=== PATIENT | female | born 1945 | race African-American/Black ===

== ENCOUNTER 2017-06-06 18:43 | Emergency (ER) | payer MEDICARE, MEDICAID ==
[~2017-06-06] VITALS: Ht 162.6 cm; Wt 80.7 kg
[2017-06-06] MEDS ORDERED: Norco 7.5mg/325mg tab ORAL ONE (19:15)
--- NOTE | 2017-06-06 20:24 | Emergency Room Report ---
History of Present Illness General Chief Complaint: Back Injury Source: Patient Present Illness HPI 72-year-old female presents to the emergency department complaining of 10 out of 10 in severity lower back and left hip pain status post mechanical fall 3 days ago. Patient states that she fell backwards and landed on her tailbone she denies hitting her head she denies loss of consciousness patient rates her pain as 10 on a 10 in severity and states it radiates across the low back and down the tailbone. Patient reports difficulty finding comfortable position she denies numbness and tingling in the extremities. Sensation is a history of lupus and high blood pressure . Denies numbness tingling or loss of sensation or gross motor movements of the extremities, incontinence of bowel or bladder. Denies CP, Palpitations, LOC, AMS, dizziness, Changes in Vision, Sensation, paresthesias, or a sudden severe headache. Allergies: Coded Allergies: IBUPROFEN (Verified Allergy, Unknown, 06/06/17) NAPROXEN (Verified Allergy, Unknown, 06/06/17) PENICILLINS (Verified Allergy, Unknown, 06/06/17) Patient History Past Medical History: see triage record, HTN, other - lupus Past Surgical History: none Pertinent Family History: none Last Menstrual Period: Post Now: No Reviewed Nursing Documentation: PMH: Agreed, PSxH: Agreed Nursing Documentation-PMH Hx Hypertension: Yes Review of Systems All Other Systems: negative except mentioned in HPI Physical Exam Vital Signs Date Time Temp Pulse Resp B/P (MAP) Pulse Ox O2 Delivery O2 Flow Rate FiO2 06/06/17 18:54 97.9 75 16 148/83 98 Room Air Sp02 EP Interpretation: reviewed, normal General Appearance: no apparent distress, alert, GCS 15, non-toxic Head: normocephalic, atraumatic Eyes: bilateral eye normal inspection, bilateral eye PERRL ENT: hearing grossly normal, normal voice Neck: full range of motion Respiratory: lungs clear, normal breath sounds, speaking full sentences Cardiovascular #1: regular rate, rhythm, normal capillary refill Gastrointestinal: normal bowel sounds, non tender, soft, no guarding, no rebound Rectal: deferred Genitourinary: normal inspection, no CVA tenderness Musculoskeletal: back normal, gait/station normal, normal range of motion, tender - Midline lumbar/sacral TTP, and left posterior hip tenderness, no bruises noted. pt. has FROM with pain, NVI. Neurologic: alert, oriented x3, responsive, motor strength/tone normal, sensory intact, speech normal Psychiatric: judgement/insight normal, memory normal Skin: normal color, no rash, warm/dry, well hydrated Medical Decision Making PA Attestation Dr. Aguila is my supervising Physician whom patient management has been discussed with. Diagnostic Impression: Primary Impression: Back pain due to injury Additional Impression: Back pain, lumbosacral ER Course 72-year-old female presents to the emergency department complaining of 10 out of 10 in severity lower back and left hip pain status post mechanical fall 3 days ago. Patient states that she fell backwards and landed on her tailbone she denies hitting her head she denies loss of consciousness patient rates her pain as 10 on a 10 in severity and states it radiates across the low back and down the tailbone. Patient reports difficulty finding comfortable position she denies numbness and tingling in the extremities. Sensation is a history of lupus and high blood pressure . Denies numbness tingling or loss of sensation or gross motor movements of the extremities, incontinence of bowel or bladder. Denies CP, Palpitations, LOC, AMS, dizziness, Changes in Vision, Sensation, paresthesias, or a sudden severe headache. Ddx considered but are not limited to Fracture, dislocation, contusion, Sprain/ Strain/Spasm, Epidural abscess, Neoplastic mets. Vital signs: are WNL, pt. is afebrile H&PE are most consistent with musculoskeletal injury will perform imaging to r/ o fractures/dislocations. ORDERS: - CT L-Spine No CONTRAST: "NO evidence of acute fracture or subluxation, no evidence of spondylolysis", multi-level degenerative changes please see official radiology report for specific details -- Per official radiology report. - CT PELVIS NO CONTRAST: Negative for acute fractures, bilateral OA of the hip joints noted with possible avascular necrosis per official radiology report, please see report for specific details. ED INTERVENTIONS: - Providence PO -D/w pt. results of her imaging, and follow up plan with PCP. D/w pt. to return to the ED with worsening or new symptoms. DISCHARGE: At this time pt. is stable for d/c to home. Will provide printed patient care instructions, and any necessary prescriptions. Care plan and follow up instructions have been discussed with the patient prior to discharge. Last Vital Signs Date Time Temp Pulse Resp B/P (MAP) Pulse Ox O2 Delivery O2 Flow Rate FiO2 06/06/17 18:54 97.9 75 16 148/83 98 Room Air Disposition: HOME, SELF-CARE Condition: Stable Scripts Tramadol Hcl* (ULTRAM*) 50 Mg Tablet 50 MG ORAL Q6H Y for For Pain, #9 TAB 0 Refills Prov: Alyssa Correa 06/06/17 Patient Instructions: Back Pain, Adult, Contusion Additional Instructions: Take medications as directed. Follow up with a Primary Care Provider in 3-5 days, even if your symptoms have resolved. --Please review list of primary care clinics, if you do not already have a primary care provider Return sooner to ED if new symptoms occur, or current symptoms become worse. Do not drink alcohol, drive, or operate heavy machinery while taking Providence as this may cause drowsiness. - Please note that this Emergency Department Report was dictated using [employer] flight attendant technology software, occasionally this can lead to erroneous entry secondary to interpretation by the dictation equipment. Alyssa Correa Jun 06, 2017 20:24
[2017-06-06] MEDS ORDERED: TRAMADOL HCL50 MG ORAL (21:00)
[2017-06-06 21:15] VITALS: BP_SYST 145; BP_SYST 148; BP_DIAS 83; BP_DIAS 87
--- NOTE | 2017-06-07 08:52 | Diagnostic Imaging Report ---
Indication: PAIN, status post fall Technique: Noncontrast spiral acquisitions obtained through the pelvis. Multiplanar reconstructions generated. Total dose length product 537 mGycm. CTDIvol(s) 17 mGy. Dose reduction achieved using automated exposure control Comparison: None Findings: No acute fractures. No dislocations. There are degenerative changes of the lumbosacral junction. No evidence of soft tissue contusion. There are is slight narrowing of the bilateral hip joints, slight degenerative remodeling, and subchondral cyst formation predominantly on the femoral side of the joints bilaterally. There is slight sclerosis of the superior subchondral femoral heads bilaterally right than on the left. Is The included pelvic viscera are unremarkable except for mild ectasia of the bilateral common iliac arteries. There is focal saccular ectasia of the left internal iliac artery as well.. Impression: No acute bony trauma Degenerative changes, as described. Bilateral femoral head sclerotic changes, most likely degenerative in nature although minimal changes of avascular necrosis not completely excludable. Incidental findings as described This agrees with the preliminary interpretation provided overnight by [facility] teleradiology service. The CT scanner at [facility] is accredited by the [employer] and the scans are performed using protocols designed to limit radiation exposure to as low as reasonably achievable to attain images of sufficient resolution adequate for diagnostic evaluation.
--- NOTE | 2017-06-07 09:02 | Diagnostic Imaging Report ---
Indications: PAIN, status post fall Technique: Spiral acquisitions obtained through the lumbar spine. Multiplanar reconstructions were generated. No IV contrast utilized. Total dose length product 494 mGycm. CTDIvol(s) 17 mGy. Dose reduction achieved using automated exposure control Comparison: None Findings: Bony alignment is normal. Vertebral body heights are preserved. Bones are osteoporotic. No acute fractures. No dislocations. At T11-12, there is mild degenerative disc narrowing with vacuum formation. No significant disc bulge or protrusion, spinal stenosis, or neural foraminal stenosis. At T12-L1, there are intravertebral disc herniation (so-called Schmorl's nodes) on both sides of the disc, largest on the L1 superior endplate. There is minimal degenerative disc narrowing. No significant disc bulge or protrusion, spinal stenosis, or neural foraminal stenosis. At L1-2, there is mild degenerative disc narrowing with vacuum formation. Some vacuum has herniated into the adjacent endplates on either side of the disc. Small intravertebral disc herniation involves the inferior endplate of L1. No significant disc bulge or protrusion. There may be mild narrowing of the neural foramina due to facet hypertrophy. There is mild bilateral facet degeneration. At L2-3, the disc space is preserved. No significant disc bulge or protrusion, spinal stenosis, or neural foraminal stenosis. There is bilateral facet degeneration. At L34, no significant disc narrowing, spinal stenosis, disc bulge or protrusion. There is mild bilateral neural foraminal stenosis due to facet hypertrophy. At L4-5, there is mild degenerative disc narrowing and vacuum formation. There is circumferential annular bulge. This does not result in significant compromise of the spinal canal. There is moderate left neural foraminal stenosis, predominantly due to facet hypertrophy, exacerbated by the bulging disc. There is minimal right neural frontal stenosis. There is bilateral facet degeneration. At L5-S1, there is moderate degenerative disc narrowing. There is vacuum formation. No significant disc bulge or protrusion or spinal stenosis. There are degenerative changes of the bilateral sacroiliac joints. There are multiple bilateral renal cysts incidentally noted. The abdominal aorta is ectatic but not frankly aneurysmal. Impression: No acute bony trauma Degenerative changes as detailed on a level by level basis above Incidental finding of bilateral renal cysts The CT scanner at [facility] is accredited by the [employer] and the scans are performed using protocols designed to limit radiation exposure to as low as reasonably achievable to attain images of sufficient resolution adequate for diagnostic evaluation.
== END 2017-06-06 21:16 | disposition home or self-care (01) ==
LOC: EMR 19:30
DX: S39.82XA Other specified injuries of lower back, initial encounter (principal); W19.XXXA Unspecified fall, initial encounter; Y92.89 Other specified places as the place of occurrence of the external cause; M32.9 Systemic lupus erythematosus, unspecified; I10 Essential (primary) hypertension; Z88.0 Allergy status to penicillin; Z88.6 Allergy status to analgesic agent
CPT/HCPCS: 72131; 72192; 99284